=== PATIENT | male | born 1970 | race Hispanic/Latino ===

== ENCOUNTER 2017-09-23 19:50 | Emergency (ER) | payer BC ==
[2017-09-23 20:41] LABS: ALT/SGPT 33 U/L (12-78); AST/SGOT 17 U/L (15-37); Alkaline Phosphatase 88 U/L (45-117); BUN Blood Urea Nitrogen 18 mg/dL (7-18); Bicarbonate 29 mmol/L (21-32); Bilirubin Direct < 0.1 mg/dL (0-0.2); Bilirubin Total 0.4 mg/dL (0.2-1.0); Glucose Level 106 mg/dL (74-106); Lipase 124 U/L (73-393); Potassium 3.7 mmol/L (3.5-5.1); Protein, Total 7.8 g/dL (6.4-8.2); Sodium Level 138 mmol/L (136-145)
[2017-09-23 20:42] LABS: Urine Blood NEGATIVE (NEG); Urine Glucose NEGATIVE (NEG); Urine Protein NEGATIVE (NEG)
[2017-09-23 20:45] LABS: Absolute Lymphocytes (CBC) 2.3 K/uL (0.7-4.9); Absolute Monocytes 0.9 K/uL (0.1-1.3); Absolute Neutrophil 4.5 K/uL (1.8-8.0); Basophils % 0.5 % (0-1.3); Eosinophils % 1.4 % (0-4.4); Hematocrit 44.8 % (39.6-49.0); Lymphocytes % 29.2 % (15.3-44.8); MCH 30.3 pg (27.0-35.0); MCV 89.8 fL (80-100); MPV 10.8 fL (7.6-11.3); Monocytes % 10.9 % (3.3-12.3); RBC Red Blood Cell Count 4.99 M/uL (4.33-5.43)
--- NOTE | 2017-09-23 21:18 | RAD REPORT ---
EXAM DESCRIPTION: CT - Abdomen Pelvis W Contrast - 09/23/2017 9:10 pm CLINICAL HISTORY: Flank pain, abdominal pain COMPARISON: None. TECHNIQUE: Biphasic, helical CT imaging of the abdomen and pelvis was performed following 100 ml non -ionic IV contrast. Oral contrast was given. All CT scans are performed using dose optimization technique as appropriate and may include automated exposure control or mA/KV adjustment according to patient size. FINDINGS: No suspicious findings in the lung bases. The liver, spleen, and pancreas show no suspicious findings. Liver attenuation is borderline for fatt y infiltration. No gallbladder or biliary tree abnormality. Symmetric renal function is seen with no hydronephrosis or suspicious renal mass. No pyelonephritis o r acute renal parenchymal process. No adrenal abnormality. No urinary bladder abnormality. Prostate g land and seminal vesicles within normal limits. No gastric dilatation or gastric wall thickening. No small bowel abnormality seen. The appendix is no rmal. Sigmoid is redundant. Lemon are accentuated by decompression. No clearly defined mass, strandin g or edema. No free air, free fluid or inflammatory stranding. No mass or bulky lymphadenopathy. Bilateral fat f illed inguinal hernias are present. Patient has a very small fat only umbilical hernia. No acute bone finding. IMPRESSION: Contrast enhanced CT abdomen and pelvis showing no acute ious finding. Nonacute findings detailed in the body of the report.
--- NOTE | 2017-09-23 21:25 | EDPHYS ---
Physician Documentation [facility] Name: Mikie Giang Age: 47 yrs Sex: Male : 1970 Arrival Date: 09/23/2017 Time: 19:53 Bed 19 Private MD: ED Physician Garret Valdez HPI: 09/23 20:36 This 47 yrs old Male presents to ER via Ambulatory with complaints of jr8 Abdominal Pain. 20:36 The patient presents with abdominal pain right side of abdomen. Onset: The jr8 symptoms/episode began/occurred gradually, 1 week(s) ago. The symptoms do not radiate. Associated signs and symptoms: none. The symptoms are described as sharp. Modifying factors: The symptoms are alleviated by nothing, the symptoms are aggravated by nothing. Severity of pain: At its worst the pain was moderate in the emergency department the pain is unchanged. The patient has not experienced similar symptoms in the past. The patient has not recently seen a physician. Historical: - Allergies: 20:00 No Known Allergies; aj - Home Meds: 20:00 lisinopril-hydrochlorothiazide 20-12.5 mg oral tab 1 tab once daily [Active]; aj - PMHx: 20:00 Hypertension; aj - PSHx: 20:00 None; aj - Immunization history:: Adult Immunizations up to date. - Social history:: Smoking status: Patient/guardian denies using tobacco. - Ebola Screening: : Patient negative for fever greater than or equal to 101.5 degrees Fahrenheit, and additional compatible Ebola Virus Disease symptoms Patient denies exposure to infectious person Patient denies travel to an Ebola-affected area in the 21 days before illness onset No symptoms or risks identified at this time. ROS: 20:36 Eyes: Negative for injury, pain, redness, and discharge, ENT: Negative for injury, jr8 pain, and discharge, Neck: Negative for injury, pain, and swelling, Cardiovascular: Negative for chest pain, palpitations, and edema, Respiratory: Negative for shortness of breath, cough, wheezing, and pleuritic chest pain, Back: Negative for injury and pain, MS/Extremity: Negative for injury and deformity, Skin: Negative for injury, rash, and discoloration, Neuro: Negative for headache, weakness, numbness, tingling, and seizure. 20:36 Abdomen/GI: Positive for abdominal pain, Negative for nausea, vomiting, and diarrhea, abdominal cramps, abdominal distension, anorexia, dysphagia, hematemesis, black/tarry stool, rectal pain, rectal bleeding, bowel incontinence, flatulence. Exam: 20:36 Eyes: Pupils equal round and reactive to light, extra-ocular motions intact. Lids and jr8 lashes normal. Conjunctiva and sclera are non-icteric and not injected. Cornea within normal limits. Periorbital areas with no swelling, redness, or edema. ENT: Nares patent. No nasal discharge, no septal abnormalities noted. Tympanic membranes are normal and external auditory canals are clear. Oropharynx with no redness, swelling, or masses, exudates, or evidence of obstruction, uvula midline. Mucous membranes moist. Neck: Trachea midline, no thyromegaly or masses palpated, and no cervical lymphadenopathy. Supple, full range of motion without nuchal rigidity, or vertebral point tenderness. No Meningismus. Cardiovascular: Regular rate and rhythm with a normal S1 and S2. No gallops, murmurs, or rubs. Normal PMI, no JVD. No pulse deficits. Respiratory: Lungs have equal breath sounds bilaterally, clear to auscultation and percussion. No rales, rhonchi or wheezes noted. No increased work of breathing, no retractions or nasal flaring. Back: No spinal tenderness. No costovertebral tenderness. Full range of motion. Skin: Warm, dry with normal turgor. Normal color with no rashes, no lesions, and no evidence of cellulitis. MS/ Extremity: Pulses equal, no cyanosis. Neurovascular intact. Full, normal range of motion. Neuro: Awake and alert, GCS 15, oriented to person, place, time, and situation. Cranial nerves II-XII grossly intact. Motor strength 5/5 in all extremities. Sensory grossly intact. Cerebellar exam normal. Normal gait. 20:36 Abdomen/GI: Inspection: abdomen appears normal, Bowel sounds: active, all quadrants, Palpation: soft, in all quadrants, mild abdominal tenderness, in the right lower quadrant, right mid abdomen, mass, is not appreciated, rebound tenderness, is not appreciated, voluntary guarding, is not appreciated, involuntary guarding, is not appreciated, no appreciated organomegaly, Indicators: McBurney's point is not tender, Leyva's sign is negative, Rovsing's sign is negative, Liver: no appreciated palpable abnormalities, tenderness, is not appreciated. Vital Signs: 20:00 BP 143 / 101; Pulse 82; Resp 17; Temp 99.0; Pulse Ox 99% on R/A; Weight 70.31 kg; aj Height 5 ft. 2 in. (157.48 cm); 21:00 BP 142 / 96; Pulse 80; Resp 16; Temp 98; Pulse Ox 100% on R/A; Pain 3/10; bs1 20:00 Body Mass Index 28.35 (70.31 kg, 157.48 cm) aj MDM: 20:04 Patient medically screened. jr8 21:19 Differential diagnosis: appendicitis, bowel obstruction, Mesenteric ischemia or jr8 infarction, non-specific abd pain, Pyelonephritis, Ureterolithiasis, urinary tract infection. Data reviewed: vital signs, nurses notes, lab test result(s), radiologic studies, CT scan, and as a result, I will discharge patient. Data interpreted: Pulse oximetry: on room air is 99 %. Interpretation: normal. Counseling: I had a detailed discussion with the patient and/or guardian regarding: the historical points, exam findings, and any diagnostic results supporting the discharge/admit diagnosis, lab results, radiology results, the need for outpatient follow up, a c.o.d. clerk, to return to the emergency department if symptoms worsen or persist or if there are any questions or concerns that arise at home. Special discussion: Based on the patient's Hx, exam, and Dx evaluation, there is no indication for emergent surgery or inpatient Tx. It is understood by the patient/guardian that if the Sx's persist or worsen they need to return immediately for re-evaluation. 09/23 20:05 Order name: Basic Metabolic Panel; Complete Time: 20:46 09/23 20:05 Order name: CBC with Diff; Complete Time: 21: 09/23 20:05 Order name: Creatinine for Radiology; Complete Time: 21:09/23 20:05 Order name: Hepatic Function; Complete Time: 20:46 09/23 20:05 Order name: Lipase; Complete Time: 20:46 09/23 20:38 Order name: Urine Dipstick--Ancillary (enter results); Complete Time: 20:46 [facility] 09/23 20:05 Order name: IV Saline Lock; Complete Time: 20:23 8 09/23 20:05 Order name: Labs collected and sent; Complete Time: 20:23 8 09/23 20:05 Order name: Urine Dipstick-Ancillary (obtain specimen); Complete Time: 20:31 8 09/23 20:47 Order name: CT Abd/Pelvis - W/Contrast; Complete Time: 21:19 Administered Medications: No medications were administered Disposition: 09/24 19:07 Co-signature as Attending Physician, Garret Valedz MD. Disposition: 09/23/17 21:24 Discharged to Home. Impression: Abdominal and pelvic pain. - Condition is Stable. - Discharge Instructions: Abdominal Pain, Adult. - Medication Reconciliation Form, Thank You Letter, Antibiotic Education, Prescription Opioid Use form. - Follow up: Devonte Rosa MD; When: 2 - 3 days; Reason: Recheck today's complaints, Continuance of care, Re-evaluation by your physician. - Problem is new. - Symptoms have improved. Signatures: Dispatcher [employer] EDMS Shirin Argueta, RN RN Carl Martinez PA PA jr8 Garret Valdez MD MD Reanna Chavarria RN RN bs1 Corrections: (The following items were deleted from the chart) 09/23 21:33 21:24 09/23/2017 21:24 Discharged to Home. Impression: Abdominal and pelvic pain. bs1 Condition is Stable. Forms are Medication Reconciliation Form, Thank You Letter, Antibiotic Education, Prescription Opioid Use. Follow up: Devonte Rosa; When: 2 - 3 days; Reason: Recheck today's complaints, Continuance of care, Re-evaluation by your physician. Problem is new. Symptoms have improved. jr8
--- NOTE | 2017-09-23 21:25 | ER ---
Nurse's Notes [facility] Name: Mikie Giang Age: 47 yrs Sex: Male : 1970 Arrival Date: 09/23/2017 Time: 19:53 Bed 19 Private MD: Diagnosis: Abdominal and pelvic pain Presentation: 09/23 19:58 Presenting complaint: Patient states: Right side abdominal pain for 1 week. Transition aj of care: patient was not received from another setting of care. Onset of symptoms was September 18, 2017. Risk Assessment: Do you want to hurt yourself or someone else? Patient reports no desire to harm self or others. Initial Sepsis Screen: Does the patient meet any 2 criteria? No. Patient's initial sepsis screen is negative. Does the patient have a suspected source of infection? No. Patient's initial sepsis screen is negative. Care prior to arrival: None. 19:58 Method Of Arrival: Ambulatory aj 19:58 Acuity: CAMERON 3 aj Triage Assessment: 20:00 General: Appears in no apparent distress. comfortable, Behavior is calm, cooperative, aj appropriate for age. Pain: Complains of pain in right upper quadrant and right lower quadrant. Neuro: Level of Consciousness is awake, alert, obeys commands, Oriented to person, place, time, situation, Appropriate for age. Respiratory: Airway is patent Respiratory effort is even, unlabored, Respiratory pattern is regular, symmetrical. GI: Abdomen is flat, non-distended, Reports lower abdominal pain, upper abdominal pain. Derm: Skin is intact, is healthy with good turgor, Skin is pink, warm \T\ dry. normal. Historical: - Allergies: 20:00 No Known Allergies; aj - Home Meds: 20:00 lisinopril-hydrochlorothiazide 20-12.5 mg oral tab 1 tab once daily [Active]; aj - PMHx: 20:00 Hypertension; aj - PSHx: 20:00 None; aj - Immunization history:: Adult Immunizations up to date. - Social history:: Smoking status: Patient/guardian denies using tobacco. - Ebola Screening: : Patient negative for fever greater than or equal to 101.5 degrees Fahrenheit, and additional compatible Ebola Virus Disease symptoms Patient denies exposure to infectious person Patient denies travel to an Ebola-affected area in the 21 days before illness onset No symptoms or risks identified at this time. Screenin:22 Abuse screen: Denies threats or abuse. Denies injuries from another. Nutritional bs1 screening: No deficits noted. Tuberculosis screening: No symptoms or risk factors identified. Fall Risk None identified. Assessment: 20:19 General: Appears in no apparent distress. uncomfortable, Behavior is calm, cooperative, bs1 appropriate for age. Pain: Complains of pain in abdomen and right lower quadrant and right upper quadrant Pain does not radiate. Neuro: Level of Consciousness is awake, alert, obeys commands, Oriented to person, place, time, situation, Appropriate for age. Cardiovascular: Denies chest pain, shortness of breath, Heart tones S1 S2 present Capillary refill < 3 seconds Patient's skin is warm and dry. Respiratory: Airway is patent Trachea midline Respiratory effort is even, unlabored, Respiratory pattern is regular, symmetrical, Breath sounds are clear bilaterally. GI: Abdomen is round non-distended, Bowel sounds present X 4 quads. Abdomen is tender to palpation in right lower quadrant and right upper quadrant Reports lower abdominal pain, upper abdominal pain, Patient currently denies bloody stool, diarrhea, nausea, vomiting. GI: Reports cramping. : Denies burning with urination. EENT: No signs and/or symptoms were reported regarding the EENT system. Derm: Skin is intact, Skin is pink, warm \T\ dry. normal. Musculoskeletal: Circulation, motion, and sensation intact. Capillary refill < 3 seconds, Range of motion: intact in all extremities. 21:32 Reassessment: Patient appears in no apparent distress at this time. Patient and/or bs1 family updated on plan of care and expected duration. Pain level reassessed. Patient is alert, oriented x 3, equal unlabored respirations, skin warm/dry/pink. Patient informed of DC instructions and to follow up with Dr Rosa. Patient states understanding of dc instructions. Patient states symptoms have improved. Vital Signs: 20:00 BP 143 / 101; Pulse 82; Resp 17; Temp 99.0; Pulse Ox 99% on R/A; Weight 70.31 kg; aj Height 5 ft. 2 in. (157.48 cm); 21:00 BP 142 / 96; Pulse 80; Resp 16; Temp 98; Pulse Ox 100% on R/A; Pain 3/10; bs1 20:00 Body Mass Index 28.35 (70.31 kg, 157.48 cm) ED Course: 19:53 Patient arrived in ED. do 19:59 Triage completed. aj 20:00 Arm band placed on right wrist. Patient placed in an exam room. aj 20:04 Carl Qureshi PA is PHCP. jr8 20:04 Garret Valdez MD is Attending Physician. jr8 20:11 Reanna Chavarria, LINDA is Primary Nurse. bs1 20:16 Inserted saline lock: 20 gauge in right antecubital area, using aseptic technique. bs1 Blood collected. 20:22 Patient has correct armband on for positive identification. Placed in gown. Bed in low bs1 position. Call light in reach. Side rails up X 1. Pulse ox on. NIBP on. 21:09 CT completed. Patient tolerated procedure well. Patient moved back from CT. bq 21:10 CT Abd/Pelvis - W/Contrast In Process Unspecified. EDMS 21:24 Devonte Rosa MD is Referral Physician. jr8 21:32 No provider procedures requiring assistance completed. IV discontinued, bleeding bs1 controlled, No redness/swelling at site. Pressure dressing applied. Administered Medications: No medications were administered Outcome: 21:24 Discharge ordered by . jr8 21:32 Discharged to home ambulatory. bs1 21:32 Condition: stable 21:32 Discharge instructions given to patient, Instructed on discharge instructions, follow up and referral plans. Demonstrated understanding of instructions, follow-up care. 21:33 Patient left the ED. bs1 Signatures: Dispatcher [employer] EDMS Shirin Argueta RN RN Dora Giron Josh, PA PA jr8 Mily Cody Brittany, LINDA RN bs1
== END 2017-09-23 21:33 | disposition home or self-care (01) ==
LOC: ER 19:50
DX: R10.2 Pelvic and perineal pain (principal); I10 Essential (primary) hypertension
CPT/HCPCS: 36415; 74177; 80048; 80076; 81003; 83690; 85025; 99284; Q9967